=== PATIENT | male | born 1940 | race Caucasian/White ===

== ENCOUNTER 2018-10-27 09:49 | Inpatient (IN) | payer MEDICARE, BC ==
[~2018-10-27] VITALS: Ht 365.8 cm; Wt 108.6 kg
[2018-10-27 11:24] LABS: BASOPHILS % (AUTO) 0.1 % (0-1); EOSINOPHILS # (AUTO) 0.1 X10'3 (0-0.9); EOSINOPHILS % (AUTO) 1.1 % (0-6); HEMATOCRIT 39.3 % (42.0-52.0); HEMOGLOBIN 13.1 g/dl (14.0-17.9); LYMPHOCYTES # (AUTO) 1.4 X10'3 (1.1-4.8); LYMPHOCYTES % (AUTO) 11.5 % (21-51); MEAN CORPUSCULAR HGB CONC 33.5 g/dL (33.0-36.5); MEAN CORPUSCULAR VOLUME 83.8 FL (78-98); MEAN PLATELET VOLUME 8.3 FL (7.4-10.4); MONOCYTES % (AUTO) 8.5 % (2-12); NEUTROPHILS # (AUTO) 9.5 X10'3 (1.8-7.7); NEUTROPHILS % (AUTO) 78.8 % (42-75); PLATELET COUNT 166 X10'3 (140-440); RED BLOOD COUNT 4.69 X10'6 (4.70-6.10); RED CELL DISTRIBUTION WIDTH 15.8 % (11.5-14.5)
[2018-10-27 11:42] LABS: ALANINE AMINOTRANSFERASE 27 U/L (12-78); ALBUMIN 3.5 G/DL (3.4-5.0); ALKALINE PHOSPHATASE 73 IU/L (46-116); ANION GAP 9 (8-16); ASPARTATE AMINO TRANSFERASE 148 U/L (10-37); BILIRUBIN,TOTAL 1.6 MG/DL (0.1-1.0); BLOOD UREA NITROGEN 21 MG/DL (7-18); BUN/CREATININE RATIO 15.8 (5.4-32.0); CALCIUM 9.3 MG/DL (8.5-10.1); CHLORIDE 106 MMOL/L (99-107); CREATININE 1.33 MG/DL (0.60-1.10); GLUCOSE 176 MG/DL (70-104); SODIUM 141 MMOL/L (135-145); TOTAL CARBON DIOXIDE 25.7 MMOL/L (24-32); TOTAL PROTEIN 7.1 G/DL (6.4-8.2); eGFR 52 ML/MIN
[2018-10-27 11:43] LABS: INR 1.1 INR; PROTHROMBIN TIME 11.4 SECONDS (9.0-12.0)
[2018-10-27 11:49] LABS: MAGNESIUM 2.1 MG/DL (1.5-2.4)
[2018-10-27] MEDS ORDERED: heparin 10,000 units/1 ML INJ IV ONE ×2 (11:50→11:55)
[2018-10-27] MEDS ORDERED: heparin 10,000 units/1 ML INJ IV PRN (11:50)
[2018-10-27 12:01] LABS: PARTIAL THROMBOPLASTIN TIME 28 SECONDS (22-32)
[2018-10-27] MEDS ORDERED: iohexol 350MG/ML 100ml bottle IV ONE (12:01)
[2018-10-27] MEDS: MESSAGE TO NURSING PO NR (12:36)
[2018-10-27] MEDS: heparin 25,000 UNIT/250ml bag 250 ML IV SCH ×2 (12:36→23:59)
[2018-10-27] MEDS ORDERED: potassium Cl 20 mEq SR tablet PO STA (12:37)
[2018-10-27] MEDS ORDERED: furosemide 10 MG/1 ML 10ml inj IV ONE ×2 (12:40→22:25)
[2018-10-27] MEDS ORDERED: atorvastatin 20mg tablet PO SCH (12:55)
[2018-10-27 13:33] LABS: CHOL/HDL RATIO 3.3 (0.00-4.99); CHOLESTEROL 102 MG/DL (0-200); HDL CHOLESTEROL 31 MG/DL (35-60); LDL CHOLESTEROL 64 MG/DL (50-100); TRIGLYCERIDES 79 MG/DL (20-135)
[2018-10-27] MEDS: metoprolol tartrate 25mg tablet PO SCH ×2 (13:35→19:57)
[2018-10-27] MEDS: tirofiban 5mg in NS 100mL 100 ML IV SCH ×2 (14:25→19:53)
[2018-10-27] MEDS ORDERED: VIT1CAPS9 PO (16:08)
[2018-10-27] MEDS ORDERED: AMLO10TA PO (16:08)
[2018-10-27] MEDS ORDERED: OMEG1CAP13 PO (16:08)
[2018-10-27] MEDS ORDERED: MEMANTINE PO (16:08)
[2018-10-27] MEDS ORDERED: LOSA50TA64 PO (16:08)
[2018-10-27] MEDS ORDERED: CYAN-19 PO (16:08)
[2018-10-27] MEDS ORDERED: GALA16CA PO (16:08)
[2018-10-27] MEDS ORDERED: ROSU40TA PO (16:08)
[2018-10-27] MEDS ORDERED: ZINC50TA60 PO (16:08)
[2018-10-27] MEDS ORDERED: CHOL400T14 PO (16:08)
[2018-10-27] MEDS ORDERED: INSU300I SQ (16:08)
[2018-10-27] MEDS ORDERED: acetaminophen 325mg tablet PO PRN ×2 (19:05)
[2018-10-27] MEDS ORDERED: magnesium 4gm in 100ml NS 100 ML IV PRN (19:05)
[2018-10-27] MEDS ORDERED: potassium Cl 40MEQ/NS 500ml 500 ML IV PRN ×2 (19:05)
[2018-10-27] MEDS ORDERED: ondansetron/PF 4mg/2ml inj IV PRN (19:05)
[2018-10-27] MEDS ORDERED: magnesium 2GM in 50ml NS 50 ML IV PRN (19:05)
[2018-10-27] MEDS ORDERED: magnesium Cl slow-release 64mg tablet PO PRN (19:05)
[2018-10-27] MEDS ORDERED: potassium Cl 20 mEq SR tablet PO PRN (19:05)
--- NOTE | 2018-10-27 19:23 | NUR ---
PER PHARMACIST, TALHA, SHE JUST CLARIFIED WITH DR. OWENS THE AGGRASTATIN ORDERS AND MD WANTS TO CONTINUE THIS OVERNIGHT AND ALSO WANTS TO CONTINUE THE HEPARIN GTT. MD DID NOT STATE TO HER WHEN TO STOP INFUSION IN AM. PT CURRENTLY DENIES ANY CP, BUT REPORTS SOME SOB. AWAITING IPA. SON AT BEDSIDE. STABLE VS. NEXT TROP (12 HR ) DUE AT 2300.
[2018-10-27] MEDS ORDERED: dextrose ORAL solution 15 GM/59 ML bottle PO PRN ×2 (20:15)
[2018-10-27] MEDS ORDERED: dextrose 50%-water 50ml dispensing syringe IV PRN ×2 (20:15)
[2018-10-27] MEDS ORDERED: glucagon, human recombinant 1mg kit SUBCUT PRN (20:15)
[2018-10-27] MEDS ORDERED: insulin Lispro (HumaLOG) vial - multi-dose SQ SCH (20:15)
[2018-10-27] MEDS ORDERED: MESSAGE TO PHARMACY PO ONE (20:15)
[2018-10-27] MEDS ORDERED: insulin glargine (Lantus) pen - multi-dose SQ SCH (21:00)
--- NOTE | 2018-10-27 21:37 | NUR ---
PLACED ONHOSPITAL BED. SON REMIANS AT BEDSIDE. PRIMARY CONTACT: YANI CABRERA, SON, CELL [phone]. PLEASE CALL WITH ANY SIGNIFICANT UPDATES OR QUESTIONS. PT HAS 2 OTHER SONS. KATI, COMING FROM [place] AND WILL BE HERE IN AM AND OTHER SON, HOLLY, WILL ALSO BE HERE IN AM (LIVES LOCALLY).
[2018-10-27 21:44] LABS: BASOPHILS # (AUTO) 0.1 X10'3 (0-0.2); BASOPHILS % (AUTO) 1.1 % (0-1); EOSINOPHILS # (AUTO) 0.2 X10'3 (0-0.9); EOSINOPHILS % (AUTO) 1.4 % (0-6); HEMATOCRIT 39.6 % (42.0-52.0); HEMOGLOBIN 13.3 g/dl (14.0-17.9); LYMPHOCYTES # (AUTO) 1.9 X10'3 (1.1-4.8); LYMPHOCYTES % (AUTO) 16.6 % (21-51); MEAN CORPUSCULAR HEMOGLOBIN 28.1 PG (27.0-31.0); MEAN CORPUSCULAR HGB CONC 33.4 g/dL (33.0-36.5); MEAN CORPUSCULAR VOLUME 83.9 FL (78-98); MEAN PLATELET VOLUME 8.2 FL (7.4-10.4); MONOCYTES # (AUTO) 1.2 X10'3 (0-0.9); MONOCYTES % (AUTO) 10.6 % (2-12); NEUTROPHILS # (AUTO) 8.2 X10'3 (1.8-7.7); NEUTROPHILS % (AUTO) 70.3 % (42-75); PLATELET COUNT 197 X10'3 (140-440); RED BLOOD COUNT 4.72 X10'6 (4.70-6.10); WHITE BLOOD COUNT 11.7 X10'3 (4.5-11.0)
--- NOTE | 2018-10-27 21:53 | NUR ---
AFTER PT TRANSFERRED HIMSELF BACK INTO THE HOSPITAL BED, HE REPORTS HE IS HAVING INCREASED SOB. DENIES ANY CP OR ANY OTHER PAIN. ECG BERTO DONE NOW. SON REMAINS AT [facility].
--- NOTE | 2018-10-27 22:15 | NUR ---
DR WOLFE AT BEDSIDE TO EVAL PT AND THE INCREASED SOB . PT'S OS INCREASED TO 5 L SATS ON 2 LITERS 88%. VERBAL RECEIVED FOR FOR LASIX 40 MGIV AND BNP AND COLLECT THE 12 HR TROP NOW 9IS SCHEDULED FOR 40 MIN FROM NOW. )
--- NOTE | 2018-10-27 22:48 | NUR ---
PT ASSSITED UP TO [facility] FOR BM.
--- NOTE | 2018-10-27 22:55 | NUR ---
DR. GREWAL CALLING TO GET UPDATE ON PT. INFORMED OF THE SOB EPISODE 1.5 HR AGO AND THAT PT GIVEN LASIX 40 IV AND THAT PT WITH SOME RELIEF NOW AND THAT 12 HR TROP PENDING AND THAT KITTRICK HAS BEEN AT BEDSIDE TO EVAL. DR. GREWAL REQUESTS THAT I DO NOT CALL HIM WITH 12 HR TROP HE KNOWS IT WILL BE ELEVATED. A FEW MIN LATER LAB CALLED [facility] RESULT, TROP NOW 27.84 (LAST WAS 38.78).
[2018-10-27 23:29] LABS: ALBUMIN 3.8 G/DL (3.4-5.0); ANION GAP 12 (8-16); BLOOD UREA NITROGEN 25 MG/DL (7-18); BUN/CREATININE RATIO 16.2 (5.4-32.0); CALCIUM 9.2 MG/DL (8.5-10.1); CHLORIDE 102 MMOL/L (99-107); CREATININE 1.54 MG/DL (0.60-1.10); GLUCOSE 240 MG/DL (70-104); SODIUM 139 MMOL/L (135-145); TOTAL CARBON DIOXIDE 24.9 MMOL/L (24-32); eGFR 44 ML/MIN
--- NOTE | 2018-10-27 23:46 | NUR ---
PT NOW BACK TO BED AND APPEARS MORE COMFORTABLE. DR. WOLFE AT BEDSIDE TO CHECK IN AND UPDATED THAT I SPOKE WITH DR. GREWAL AND THAT 12 HR TROP 27.84. PT'S SON REMAINIS AT BEDSIDE. [employer]OP SERVICE TECHNICIAN HUGO TALKING WITH THEM ABOUT THE LIKELYHOOD OF STAYING ADMIT HOLD IN ER THROUGH THE NIGHT.
[2018-10-28] MEDS: tirofiban 5mg in NS 100mL 100 ML IV SCH ×2 (00:03→05:07)
--- NOTE | 2018-10-28 00:50 | NUR ---
PT'S SON LEFT. GIVEN NURSES STATION PHONE NUMBER IN ER. SON REPROTS HE WILL RETURN IN THE [facility].
[2018-10-28 05:15] LABS: BASOPHILS # (AUTO) 0.1 X10'3 (0-0.2); BASOPHILS % (AUTO) 0.6 % (0-1); EOSINOPHILS # (AUTO) 0.1 X10'3 (0-0.9); EOSINOPHILS % (AUTO) 0.7 % (0-6); HEMOGLOBIN 12.5 g/dl (14.0-17.9); MEAN CORPUSCULAR HEMOGLOBIN 27.9 PG (27.0-31.0); MEAN CORPUSCULAR HGB CONC 33.8 g/dL (33.0-36.5); MEAN CORPUSCULAR VOLUME 82.6 FL (78-98); MEAN PLATELET VOLUME 8.4 FL (7.4-10.4); MONOCYTES % (AUTO) 8.2 % (2-12); NEUTROPHILS # (AUTO) 8.6 X10'3 (1.8-7.7); NEUTROPHILS % (AUTO) 73.5 % (42-75); PLATELET COUNT 188 X10'3 (140-440); RED BLOOD COUNT 4.48 X10'6 (4.70-6.10); WHITE BLOOD COUNT 11.7 X10'3 (4.5-11.0)
--- NOTE | 2018-10-28 05:16 | NUR ---
RT AT BEDSIDE FOR EVAL AND PROVIDING PT WITH FLUTTER VALVE AND TEACHING
[2018-10-28 05:24] LABS: ALBUMIN 3.3 G/DL (3.4-5.0); ANION GAP 8 (8-16); BLOOD UREA NITROGEN 25 MG/DL (7-18); CHLORIDE 104 MMOL/L (99-107); CREATININE 1.47 MG/DL (0.60-1.10); GLUCOSE 216 MG/DL (70-104); POTASSIUM 3.8 MMOL/L (3.5-5.1); SODIUM 141 MMOL/L (135-145); TOTAL CARBON DIOXIDE 28.7 MMOL/L (24-32); eGFR 46 ML/MIN
[2018-10-28] MEDS ORDERED: potassium Cl 20 mEq SR tablet PO STA (06:41)
--- NOTE | 2018-10-28 06:43 | NUR ---
jax piedra at bedside. she requests the am dose of lasix be increased from 40 mg to 60 mg. cathlab scheduled for 8 am
[2018-10-28] MEDS ORDERED: furosemide 10 MG/1 ML 10ml inj IV ONE (06:45)
[2018-10-28] MEDS ORDERED: midazolam 2 mg/2 ml injection ONE (07:15)
[2018-10-28] MEDS ORDERED: fentaNYL/PF 50MCG/1 ML 2ML syringe ONE (07:15)
[2018-10-28] MEDS ORDERED: LIDOcaine 1% (10mg/ml)w/preservative injection 20ml MDV ONE ×2 (07:16→07:30)
[2018-10-28] MEDS ORDERED: iohexol 350 MG/1 ML 200ml bottle ONE (07:16)
[2018-10-28] MEDS ORDERED: iohexol 350MG/ML 100ml bottle IV ONE (07:30)
[2018-10-28] MEDS ORDERED: amLODIPine 5mg tablet PO SCH (08:00)
[2018-10-28] MEDS: furosemide 40mg/4ml inj IV SCH (08:00)
[2018-10-28] MEDS: K and/or MAG REPLACEMENT MC SCH (08:00)
[2018-10-28 08:38] VITALS: BP 125/74
[2018-10-28] MEDS: MESSAGE TO NURSING PO NR (10:00)
[2018-10-28] MEDS ORDERED: ondansetron/PF 4mg/2ml inj IV PRN (10:05)
[2018-10-28] MEDS ORDERED: OXAZEpam 15mg capsule PO PRN (10:05)
[2018-10-28] MEDS ORDERED: proCHLORperazine 10 MG/2 ml inj IV PRN (10:05)
[2018-10-28] MEDS ORDERED: HYDROcodone/acetaminophen 5mg/325mg tablet PO PRN (10:05)
[2018-10-28] MEDS ORDERED: HYDROcodone/acetaminophen 10/325mg tab PO PRN (10:05)
[2018-10-28 10:45] VITALS: BP 117/68
[2018-10-28] MEDS: CefTRIAXone 2gm/D5W 50ml 50 ML IV SCH (13:07)
[2018-10-28] MEDS: aspirin 81mg tab.chew PO SCH (13:10)
[2018-10-28] MEDS: atorvastatin 20mg tablet PO SCH (13:11)
[2018-10-28] MEDS: carvedilol 6.25mg tablet PO SCH ×2 (13:11→20:00)
[2018-10-28] MEDS: losartan 50mg tablet PO SCH (13:11)
--- NOTE | 2018-10-28 14:37 | NUR ---
DM Consult: A1C 8.1. Pt admit for CHF exacerbation and seen by NOEMI for written/verbal DM ed; RD contact information provided. Pt reports PO has decreased intentionally past 2 days r/t SOB s/p meals so he is "cutting back." RD educated pt on importance of protein w/ CHF and T2DM and pt agrees to chocolate ensure pudding TIDWM. Carb content in pudding should be fine given pt intentionally picking at 25% meals per pt report and EMR documentation verifies. If PO increases will need to consider Ensure high protein as low carb alternative. Will continue to monitor. Rec: 1. continue carb controlled/heart healthy diet 2. chocolate ensure pudding TIDWM; change to ensure high pro if PO increases 3. wt per rx Addendum: 10/28/18 at [address] Amended: Links added.
--- NOTE | 2018-10-28 16:40 | NUR ---
received pt report from Kelsey MATHIS. pt arrived to floor from PCU and transferred to bed. pt hooked up to monitor, VSS. pt oriented to room and call light.
[2018-10-28 16:45] VITALS: BP 124/67
[2018-10-28] MEDS ORDERED: glucagon, human recombinant 1mg kit SUBCUT PRN (17:05)
[2018-10-28] MEDS ORDERED: dextrose 50%-water 50ml dispensing syringe IV PRN ×2 (17:05)
[2018-10-28] MEDS ORDERED: dextrose ORAL solution 15 GM/59 ML bottle PO PRN ×2 (17:05)
[2018-10-28] MEDS ORDERED: MESSAGE TO PHARMACY PO ONE (17:05)
[2018-10-28 18:00] VITALS: BP 106/48
--- NOTE | 2018-10-28 18:00 | NUR ---
Patient in room MED 313. I have received report from Lilian and had the opportunity to ask questions and assume patient care.
--- NOTE | 2018-10-28 18:00 | NUR ---
Patient in room MED 313. I have received report from Chelo and had the opportunity to ask questions and assume patient care.
--- NOTE | 2018-10-28 18:19 | NUR ---
Problems reprioritized. Patient report given, questions answered & plan of care reviewed with Rubin MATHIS.
[2018-10-28] MEDS: insulin Lispro (HumaLOG) vial - multi-dose SQ SCH (19:35)
[2018-10-28] MEDS: lactobacillus rhamnosus 10,000 MMU CELLS/CAPSULE PO SCH (20:50)
[2018-10-28] MEDS: insulin glargine (Lantus) pen - multi-dose SQ SCH (20:58)
[2018-10-28 22:45] VITALS: BP_SYST 119; BP_SYST 124; BP_DIAS 56; BP_DIAS 67
[2018-10-29 03:00] VITALS: BP 108/49
--- NOTE | 2018-10-29 06:00 | NUR ---
Patient in room MED 312. I have received report from Saeid Santos RN and had the opportunity to ask questions and assume patient care.
[2018-10-29 07:00] VITALS: BP 112/64
[2018-10-29 07:06] LABS: BASOPHILS % (AUTO) 0.3 % (0-1); EOSINOPHILS # (AUTO) 0.3 X10'3 (0-0.9); EOSINOPHILS % (AUTO) 3.2 % (0-6); HEMATOCRIT 35.5 % (42.0-52.0); HEMOGLOBIN 11.9 g/dl (14.0-17.9); LYMPHOCYTES # (AUTO) 1.7 X10'3 (1.1-4.8); LYMPHOCYTES % (AUTO) 19.2 % (21-51); MEAN CORPUSCULAR HEMOGLOBIN 28.1 PG (27.0-31.0); MEAN CORPUSCULAR HGB CONC 33.6 g/dL (33.0-36.5); MEAN CORPUSCULAR VOLUME 83.6 FL (78-98); MEAN PLATELET VOLUME 8.4 FL (7.4-10.4); MONOCYTES % (AUTO) 11.4 % (2-12); NEUTROPHILS # (AUTO) 5.9 X10'3 (1.8-7.7); NEUTROPHILS % (AUTO) 65.9 % (42-75); PLATELET COUNT 144 X10'3 (140-440); RED BLOOD COUNT 4.25 X10'6 (4.70-6.10); RED CELL DISTRIBUTION WIDTH 15.3 % (11.5-14.5); WHITE BLOOD COUNT 8.9 X10'3 (4.5-11.0)
[2018-10-29 07:07] LABS: ALBUMIN 3.1 G/DL (3.4-5.0); ANION GAP 10 (8-16); BLOOD UREA NITROGEN 32 MG/DL (7-18); BUN/CREATININE RATIO 23.2 (5.4-32.0); CALCIUM 8.8 MG/DL (8.5-10.1); CHLORIDE 104 MMOL/L (99-107); CREATININE 1.38 MG/DL (0.60-1.10); GLUCOSE 122 MG/DL (70-104); POTASSIUM 3.5 MMOL/L (3.5-5.1); SODIUM 142 MMOL/L (135-145); TOTAL CARBON DIOXIDE 27.6 MMOL/L (24-32); eGFR 50 ML/MIN
[2018-10-29] MEDS: furosemide 40mg/4ml inj IV SCH (07:58)
[2018-10-29] MEDS: losartan 50mg tablet PO SCH (07:58)
[2018-10-29] MEDS: carvedilol 6.25mg tablet PO SCH ×2 (07:58→20:12)
[2018-10-29] MEDS: atorvastatin 20mg tablet PO SCH (07:58)
[2018-10-29] MEDS: aspirin 81mg tab.chew PO SCH (07:58)
[2018-10-29] MEDS: CefTRIAXone 2gm/D5W 50ml 50 ML IV SCH (07:58)
[2018-10-29] MEDS: lactobacillus rhamnosus 10,000 MMU CELLS/CAPSULE PO SCH ×2 (07:58→20:12)
[2018-10-29] MEDS: K and/or MAG REPLACEMENT MC SCH (08:00)
[2018-10-29] MEDS: insulin Lispro (HumaLOG) vial - multi-dose SQ SCH ×3 (08:51→18:47)
[2018-10-29 08:52] LABS: CHOL/HDL RATIO 3.5 (0.00-4.99); CHOLESTEROL 111 MG/DL (0-200); CREATININE 1.43 MG/DL (0.60-1.10); HDL CHOLESTEROL 32 MG/DL (35-60); LDL CHOLESTEROL 66 MG/DL (50-100); TRIGLYCERIDES 122 MG/DL (20-135); eGFR 48 ML/MIN
[2018-10-29] MEDS: MESSAGE TO NURSING PO NR (09:00)
[2018-10-29 11:00] VITALS: BP 124/62
[2018-10-29 15:00] VITALS: BP 118/56
[2018-10-29 18:00] VITALS: BP 118/67
--- NOTE | 2018-10-29 18:00 | NUR ---
Patient in room MED 313. I have received report from Tico and had the opportunity to ask questions and assume patient care.
--- NOTE | 2018-10-29 18:10 | NUR ---
Problems reprioritized. Patient report given, questions answered & plan of care reviewed with Saeid Hargrove and Nichelle Kelley RN.
[2018-10-29] MEDS: insulin glargine (Lantus) pen - multi-dose SQ SCH (20:18)
[2018-10-29] MEDS: temazepam 15mg capsule PO PRN (22:45)
[2018-10-29 23:00] VITALS: BP 110/62
[2018-10-30] MEDS: temazepam 15mg capsule PO PRN (01:11)
[2018-10-30 02:45] VITALS: BP 118/61
[2018-10-30 06:00] VITALS: BP 122/62
[2018-10-30 06:21] LABS: ALBUMIN 3.1 G/DL (3.4-5.0); ANION GAP 8 (8-16); BLOOD UREA NITROGEN 34 MG/DL (7-18); CALCIUM 8.4 MG/DL (8.5-10.1); CHLORIDE 103 MMOL/L (99-107); CREATININE 1.36 MG/DL (0.60-1.10); GLUCOSE 150 MG/DL (70-104); MAGNESIUM 2.1 MG/DL (1.5-2.4); POTASSIUM 3.4 MMOL/L (3.5-5.1); SODIUM 140 MMOL/L (135-145); TOTAL CARBON DIOXIDE 28.9 MMOL/L (24-32); eGFR 51 ML/MIN
--- NOTE | 2018-10-30 06:23 | NUR ---
Patient in room MED 313. I have received report from Nichelle MATHIS and had the opportunity to ask questions and assume patient care.
[2018-10-30 06:25] LABS: BASOPHILS % (AUTO) 0.5 % (0-1); EOSINOPHILS # (AUTO) 0.5 X10'3 (0-0.9); EOSINOPHILS % (AUTO) 5.3 % (0-6); HEMATOCRIT 36.6 % (42.0-52.0); HEMOGLOBIN 12.1 g/dl (14.0-17.9); LYMPHOCYTES # (AUTO) 1.8 X10'3 (1.1-4.8); MEAN CORPUSCULAR HEMOGLOBIN 27.9 PG (27.0-31.0); MEAN CORPUSCULAR HGB CONC 33.2 g/dL (33.0-36.5); MEAN CORPUSCULAR VOLUME 84.1 FL (78-98); MEAN PLATELET VOLUME 8.4 FL (7.4-10.4); MONOCYTES # (AUTO) 1.1 X10'3 (0-0.9); MONOCYTES % (AUTO) 12.6 % (2-12); NEUTROPHILS # (AUTO) 5.2 X10'3 (1.8-7.7); NEUTROPHILS % (AUTO) 60.6 % (42-75); PLATELET COUNT 151 X10'3 (140-440); RED BLOOD COUNT 4.35 X10'6 (4.70-6.10); WHITE BLOOD COUNT 8.6 X10'3 (4.5-11.0)
[2018-10-30] MEDS: lactobacillus rhamnosus 10,000 MMU CELLS/CAPSULE PO SCH (07:11)
[2018-10-30] MEDS: carvedilol 6.25mg tablet PO SCH (07:12)
[2018-10-30] MEDS: losartan 50mg tablet PO SCH (07:12)
[2018-10-30] MEDS: furosemide 40mg/4ml inj IV SCH (07:13)
[2018-10-30] MEDS: CefTRIAXone 2gm/D5W 50ml 50 ML IV SCH (07:13)
[2018-10-30] MEDS: atorvastatin 20mg tablet PO SCH (07:13)
[2018-10-30] MEDS: K and/or MAG REPLACEMENT MC SCH (08:00)
[2018-10-30] MEDS: aspirin 81mg tab.chew PO SCH (08:08)
[2018-10-30] MEDS: insulin Lispro (HumaLOG) vial - multi-dose SQ SCH ×2 (08:11→12:46)
[2018-10-30] MEDS: potassium Cl 20 mEq SR tablet PO PRN ×2 (09:35→12:42)
[2018-10-30] MEDS ORDERED: CARV6.253 PO (10:59)
[2018-10-30 11:00] VITALS: BP 116/69
--- NOTE | 2018-10-30 12:50 | NUR ---
discharge education provided to pt. IV discontinued; cannula intact. pt disconnected from monitor. pt declined wheel chair and ambulated with grandson to car with all belongings.
== END 2018-10-30 12:50 | disposition home or self-care (01) | DRG 286 ==
LOC: ER 09:49 → ED HOLD 19:04 → PCU 3S 10-28 07:05 → MED 3N 10-28 16:03
PROVIDERS: ADMIT Internal Medicine; ATTEND Internal Medicine
PROC: B32T1ZZ Computerized Tomography (CT Scan) of Left Pulmonary Artery using Low Osmolar Contrast (ICD-10-PCS; principal; 2018-10-27)
PROC: B3201ZZ Computerized Tomography (CT Scan) of Thoracic Aorta using Low Osmolar Contrast (ICD-10-PCS; 2018-10-27)
PROC: B32S1ZZ Computerized Tomography (CT Scan) of Right Pulmonary Artery using Low Osmolar Contrast (ICD-10-PCS; 2018-10-27)
PROC: 4A023N7 Measurement of Cardiac Sampling and Pressure, Left Heart, Percutaneous Approach (ICD-10-PCS; 2018-10-28)
PROC: B2111ZZ Fluoroscopy of Multiple Coronary Arteries using Low Osmolar Contrast (ICD-10-PCS; 2018-10-28)
PROC: B2151ZZ Fluoroscopy of Left Heart using Low Osmolar Contrast (ICD-10-PCS; 2018-10-28)
PROC: B2131ZZ Fluoroscopy of Multiple Coronary Artery Bypass Grafts using Low Osmolar Contrast (ICD-10-PCS; 2018-10-28)
PROC: B2181ZZ Fluoroscopy of Left Internal Mammary Bypass Graft using Low Osmolar Contrast (ICD-10-PCS; 2018-10-28)
DX: I13.0 Hypertensive heart and chronic kidney disease with heart failure and stage 1 through stage 4 chronic kidney disease, or unspecified chronic kidney disease (principal); J18.9 Pneumonia, unspecified organism; E78.5 Hyperlipidemia, unspecified; M54.2 Cervicalgia; G47.33 Obstructive sleep apnea (adult) (pediatric); I25.10 Atherosclerotic heart disease of native coronary artery without angina pectoris; N18.3 Chronic kidney disease, stage 3 (moderate); E11.22 Type 2 diabetes mellitus with diabetic chronic kidney disease; E11.65 Type 2 diabetes mellitus with hyperglycemia; Z96.652 Presence of left artificial knee joint; I44.7 Left bundle-branch block, unspecified; I50.9 Heart failure, unspecified; M19.90 Unspecified osteoarthritis, unspecified site; Z66 Do not resuscitate; Z95.1 Presence of aortocoronary bypass graft; I25.2 Old myocardial infarction; Z79.82 Long term (current) use of aspirin; Z79.4 Long term (current) use of insulin; Z87.891 Personal history of nicotine dependence; Z85.46 Personal history of malignant neoplasm of prostate; Z92.3 Personal history of irradiation
CPT/HCPCS: 36415; 71045; 71275; 80048; 80053; 80061; 82565; 82948; 83036; 83605; 83735; 83880; 84484; 85025; 85610; 85730; 87040; 87070; 93005; 93306; 93459; 99152; 99153; A4620; A6257; C1769; G0378; J0696; J1644; J1815; J1940; J2001; J2250; J3010; J3246; J7030; Q9967